=== PATIENT | male | born 1955 | race Caucasian/White ===

== ENCOUNTER 2016-06-08 10:38 | Emergency (ER) | payer OTHER ==
[2016-06-08 10:44] VITALS: RESP 16
--- NOTE | 2016-06-08 11:28 | EDPHY ---
H & P Stated Complaint: LIRIANO left sided since last night. Time Seen by Provider: 06/08/16 11:00 HPI/ROS: CHIEF COMPLAINT: new onset headache HISTORY OF PRESENT ILLNESS: 61-year-old male otherwise healthy with no prior history of chronic headaches awoke at 4:00 a.m. today with intermittent left left parietal headache which lasts between 5-10 seconds described as a "ice cream headache". Occurs approximately every2-3 minutes. not described as thunderclap. Does not radiate, is not associated with visual issues such as visual acuity changes, visual field cuts, tearing of the eye. Denies: neurologic deficits, gait instability, slurred speech, fever, chills He has no history of head or neck trauma. No history of neck manipulation. No history of vasculopathy. No history of malignancy. PRIMARY CARE PROVIDER: Dr. Rupesh Andrews REVIEW OF SYSTEMS: A ten point review of systems was performed and is negative with the exception of the items mentioned in the HPI PAST MEDICAL & SURGICAL HISTORY: No prior history of chronic headaches, no history of vasculopathy or malignancy SOCIAL HISTORY: nonsmoker PHYSICAL EXAM (Prior to examination, patient consented to physical exam, hands were washed and my usual and customary physical exam procedures followed) 1) GENERAL: Well-developed, well-nourished, alert and oriented. Appears to be in no acute distress. 2) HEAD: Normocephalic, atraumatic. No tenderness to palpation of the scalp including temporal region. 3) HEENT: Pupils equal, round, reactive to light bilaterally. Sclera anicteric. Nasopharynx, oropharynx, clear, no lesions. Ears bilaterally with normal tympanic membranes. 4) NECK: Full range of motion, no meningeal signs. 5) LUNGS: Clear auscultation bilaterally, no wheezes, no rhonchi, no retractions. 6) HEART: Regular rate and rhythm, no murmur, no heave, no gallop. 7) ABDOMEN: No guarding, no rebound, no focal tenderness, negative McBurney's, negative Gordon's, negative Rovsing's, negative peritoneal sign, 8) MUSCULOSKELETAL: Moving all extremities, no focal areas of tenderness, no obvious trauma. No peripheral edema or discoloration. 9) BACK: No CVA tenderness, no midline vertebral tenderness, no fluctuance, no step-off, no obvious trauma, no visual or palpable abnormality. 10) SKIN: No rash, no petechiae. 11) Psychiatric: Patient is oriented X 3, there is no agitation. 12) NEURO: Awake, alert, and oriented to person, place and time. Answers questions appropriately. There were no obvious focal neurologic abnormalities. No cerebellar dysfunction. Cranial nerves 2 through to 12 intact. Normal steady gait. Upper and lower extremities bilaterally with strength 5 / 5, reflexes 2+. DIFFERENTIAL DIAGNOSIS: In no particular order, including but not limited to subarachnoid hemorrhage, migraine headache, tension headache and infectious causes such as meningitis, pharyngitis and sinusitis. The patient understands that this diagnosis is provisional and can never be 100% accurate. Usual and customary warnings were given concerning the clinical impression and all the patient's questions were answered. The patient was instructed to return to the emergency department should her symptoms worsen or return, or develop any new symptoms, otherwise to followup as directed in discharge instructions. This is a partial list of diagnoses considered. These considerations are based on history, physical exam, past history and reassessment. - Personal History Current Tetanus/Diphtheria Vaccine: Yes Current Tetanus Diphtheria and Acellular Pertussis (TDAP): Yes - Medical/Surgical History Hx Asthma: No Hx Chronic Respiratory Disease: No Hx Diabetes: No Hx Cardiac Disease: No Hx Renal Disease: No Hx Cirrhosis: No Hx Alcoholism: No Hx HIV/AIDS: No Hx Splenectomy or Spleen Trauma: No Other PMH: mild IBS - Social History Smoking Status: Never smoked Constitutional: Initial Vital Signs Temperature (C) 36.6 C 06/08/16 10:41 Heart Rate 64 06/08/16 10:41 Respiratory Rate 16 06/08/16 10:41 Blood Pressure 129/76 H 06/08/16 10:41 O2 Sat (%) 97 06/08/16 10:41 O2 Delivery Mode Room Air Allergies/Adverse Reactions: No Known Allergies Allergy (Unverified 06/08/16 10:40) Home Medications: Medication Instructions Recorded NK [No Known Home Meds] 06/08/16 Medical Decision Making - Diagnostics Imaging Results: Imaging Impressions Head CT 06/08/16 11:28 Impression: Normal head CT. Findings were discussed by telephone with Wong Garrett PA-C at 1210 hrs. Head CTA 06/08/16 11:28 Impression: 1. Normal CT angiogram of the [place] [facility] [place], as detailed above. 2. No evidence of venous sinus thrombosis. Note: All calculations were performed using NASCET criteria Findings were discussed by telephone with Wong Garrett PA-C at 1210 hrs. Imaging: Discussed imaging studies w/ bingo caller Radiologist ED Course/Re-evaluation: 11:28 a.m.: Patient has a nonfocal exam. Discussed case Dr. Lubna Hidalgo. Will obtain imaging studies. 12:16 a.m.: Re-evaluation. Discussed his negative imaging results of his brain including vascular study. Discussed this with Dr. Lubna Hidalgo in the ER. He remains with a nonfocal neurologic examination. I think the patient can be discharged with close follow up with primary care provider on Saturday (today is Saturday). In the meantime should he develop new or worsening symptoms needs to return to the ER. Strict return precautions provided and he feels comfortable being discharged. Recommend ibuprofen for the next 2 days. Doubt subarachnoid hemorrhage, doubt thrombus, doubt mass, doubt trigeminal neuralgia , doubt cluster headache. - Data Points Laboratory Results: 06/08/16 11:26 POC Hgb 15.6 gm/dL gm/dL (14.5-17.3) POC Hct 46 % % (42.8-50.6) POC Sodium 141 mEq/L mEq/L (134-144) POC Potassium 4.1 mEq/L mEq/L (3.3-5.0) POC Chloride 100 mEq/L mEq/L (96-108) POC BUN 22 mg/dL mg/dL (7-23) POC Creatinine 1.0 mg/dL mg/dL (0.8-1.5) POC Glucose 86 mg/dL mg/dL (70-100) Point of Care Test Results: 06/08/16 11:26 POC Sodium 141 POC Potassium 4.1 POC Chloride 100 POC BUN 22 POC Creatinine 1.0 POC Glucose 86 Departure - Departure Disposition: Home, Routine, Self-Care Clinical Impression: Headache Qualifiers: Headache type: other headache syndrome Qualified Code(s): G44.89 - Other headache syndrome Condition: Good Instructions: Acute Headache (ED) Additional Instructions: THANK YOU FOR YOUR VISIT TO OUR EMERGENCY DEPARTMENT (ED). YOU WERE SEEN TODAY BECAUSE OF A HEADACHE. YOU MAY HAVE HAD LAB TESTS, A CT SCAN, MRI OR EVEN A LUMBAR PUNCTURE (COMMONLY REFERRED TO A SPINAL TAP). WE CANNOT ALWAYS FIND THE EXACT CAUSE OF YOUR SYMPTOMS DURING YOUR VISIT TO THE ED. RETURN TO THE ED IMMEDIATELY IF YOUR HEADACHE WORSENS, IF YOU DEVELOP A FEVER, NECK PAIN OR NECK STIFFNESS, OR IF YOU BECOME CONFUSED OR ABNORMALLY DROWSY. Referrals: Rupesh Andrews MD [Primary Care Provider] - 06/11/16
[2016-06-08] MEDS ORDERED: IOPAMIDOL (ISOVUE 370) 100 ML BTL IV ONE (11:36)
[2016-06-08 12:37] VITALS: BP 109/63; PULSE 58; TEMP 98.1; O2SAT 96
== END 2016-06-08 12:37 | disposition home or self-care (01) ==
DX: G44.89 Other headache syndrome (principal)
CPT/HCPCS: 82947-QW; Q9967

== ENCOUNTER 2017-06-08 06:46 | Emergency (ER) | payer OTHER ==
--- NOTE | 2017-06-08 07:03 | CPEKG ---
Heart Rate: 68 RR Interval: 882 P-R Interval: 204 QRSD Interval: 96 QT Interval: 388 QTC Interval: 413 P [place]: 73 QRS [place]: 88 T Wave [place]: 29 EKG Severity - BORDERLINE ECG - EKG Impression: SINUS RHYTHM EKG Impression: VENTRICULAR PREMATURE COMPLEX EKG Impression: BORDERLINE RIGHT AXIS DEVIATION Electronically Signed By: Chloe Stevens 08-Jun-2017 10:44:54
[2017-06-08] MEDS: LET GEL TOPICAL 1 EA SYR TP ONE (07:13)
--- NOTE | 2017-06-08 07:19 | EDPHY ---
H & P Stated Complaint: SYNCOPE/LAC BRIDGE OF NOSE @ 0500 AFTER BATH Time Seen by Provider: 06/08/17 07:08 HPI/ROS: CHIEF COMPLAINT: Syncope, facial laceration HISTORY OF PRESENT ILLNESS: 62-year-old male presents after a syncopal episode with a facial laceration. Onset of nasal congestion and cough 3 days ago. The URI symptoms have been mild and without fever or shortness of breath. He was taking a hot bath this morning, when he developed nausea and dizziness. He stood up and sat on the toilet and then had a syncopal episode. He fell forward and struck his face. Mild epistaxis, quickly resolved. Had not eaten prior to syncopal episode. Denies headache, neck pain, nausea or abdominal pain now. REVIEW OF SYSTEMS: complete 10 point ROS negative except at noted in the HPI - Personal History Current Tetanus Diphtheria and Acellular Pertussis (TDAP): No - Medical/Surgical History Hx Asthma: No Hx Chronic Respiratory Disease: No Hx Diabetes: No Hx Cardiac Disease: No Hx Renal Disease: No Hx Cirrhosis: No Hx Alcoholism: No Hx HIV/AIDS: No Hx Splenectomy or Spleen Trauma: No Other PMH: mild IBS - Social History Smoking Status: Never smoked - Physical Exam Exam: General Appearance: Alert, pleasant Eyes: Pupils equal and round, no conjunctival pallor or injection ENT, Mouth: 1cm laceration on the bridge of the nose, no dental injury, no facial bony tenderness, mucous membranes moist Neck: Normal inspection, no midline tenderness, range of motion without pain Respiratory: Lungs are clear to auscultation Cardiovascular: Regular rate and rhythm Gastrointestinal: Abdomen is soft and nontender Neurological: A&O, nonfocal, normal gait Skin: Warm and dry Extremities: Nontender, no swelling Psychiatric: Mood and affect normal Constitutional: Initial Vital Signs Temperature (C) 36.7 C 06/08/17 06:52 Heart Rate 70 06/08/17 06:52 Respiratory Rate 18 06/08/17 06:52 Blood Pressure 110/59 L 06/08/17 06:52 O2 Sat (%) 93 06/08/17 06:52 O2 Delivery Mode Room Air Allergies/Adverse Reactions: No Known Allergies Allergy (Verified 06/08/17 06:51) Home Medications: Medication Instructions Recorded NK [No Known Home Meds] 06/08/16 Medical Decision Making - Diagnostics EKG Interpretation: EKG interpreted by me reveals normal sinus rhythm, rate 68, PVC, no ST or T segment changes. Interpretation borderline EKG. Procedures: Procedure: Laceration repair. The 1 cm laceration on the nasal bridge was anesthetized using lidocaine. The wound was irrigated, draped and explored to its base with a gloved finger. There were no deep structures involved. No foreign body palpable. The wound was repaired with 6-0 nylon. The wound repair was simple. ED Course/Re-evaluation: This pt presents after a syncopal episode, most likely a vasovagal episode related to a hot bath, lack of oral intake and URI. He now feels back to normal. He is nontoxic-appearing and chest is clear to auscultation. No evidence of pneumonia or serious bacterial infection. Stat EKG reveals no evidence of ischemia or dysrhythmia. Observation in the emergency department, patient was asymptomatic throughout. Laceration was sutured by me. Warning signs discussed. Differential Diagnosis: Differential diagnosis for syncope includes though is not limited to cardiac dysrhythmia, CVA, TIA, GI bleed, sepsis, hypoglycemia. - Data Points Laboratory Results: Laboratory Results 06/08/17 07:23 06/08/17 07:23 06/08/17 06/08/17 07:23 07:23 WBC 5.74 10^3/uL 10^3/uL (3.80-9.50) RBC 4.73 10^6/uL 10^6/uL (4.40-6.38) Hgb 14.6 g/dL g/dL (13.7-17.5) Hct 43.8 % % (40.0-51.0) MCV 92.6 fL fL (81.5-99.8) MCH 30.9 pg pg (27.9-34.1) MCHC 33.3 g/dL g/dL (32.4-36.7) RDW 13.0 % % (11.5-15.2) Plt Count 78 10^3/uL L 10^3/uL (150-400) MPV 11.6 fL fL (8.7-11.7) Neut % (Auto) 81.7 % H % (39.3-74.2) Lymph % (Auto) 8.2 % L % (15.0-45.0) Ball[place] % (Auto) 8.2 % % (4.5-13.0) Eos % (Auto) 0.7 % % (0.6-7.6) Baso % (Auto) 0.7 % % (0.3-1.7) Nucleat RBC Rel Count 0.0 % % (0.0-0.2) Absolute Neuts (auto) 4.69 10^3/uL 10^3/uL (1.70-6.50) Absolute Lymphs (auto) 0.47 10^3/uL L 10^3/uL (1.00-3.00) Absolute Monos (auto) 0.47 10^3/uL 10^3/uL (0.30-0.80) Absolute Eos (auto) 0.04 10^3/uL 10^3/uL (0.03-0.40) Absolute Basos (auto) 0.04 10^3/uL 10^3/uL (0.02-0.10) Absolute Nucleated RBC 0.00 10^3/uL 10^3/uL (0-0.01) Immature Gran % 0.5 % % (0.0-1.1) Immature Gran # 0.03 10^3/uL 10^3/uL (0.00-0.10) Sodium 142 mEq/L mEq/L (135-145) Potassium 4.4 mEq/L mEq/L (3.5-5.2) Chloride 104 mEq/L mEq/L (97-110) Carbon Dioxide 25 mEq/l mEq/l (22-31) Anion Gap 13 mEq/L mEq/L (8-16) BUN 17 mg/dL mg/dL (7-23) Creatinine 1.0 mg/dL mg/dL (0.7-1.3) Estimated GFR > 60 Glucose 130 mg/dL H mg/dL (70-100) Calcium 8.9 mg/dL mg/dL (8.5-10.4) Medications Given: Discontinued Medications Diphtheria/Tetanus/Acell Pertussis (Boostrix) 0.5 ml IM .ONCE ONE Stop: 06/08/17 07:16 Last Admin: 06/08/17 07:38 Dose: 0.5 ml Tetracaine/Epinephrine/Lidocaine (Let Gel Topical) 1 ea TP EDNOW ONE Stop: 06/08/17 07:11 Last Admin: 06/08/17 07:13 Dose: 1 ea Departure - Departure Disposition: Home, Routine, Self-Care Clinical Impression: Syncope Qualifiers: Syncope type: vasovagal syncope Qualified Code(s): R55 - Syncope and collapse Facial laceration Qualifiers: Encounter type: initial encounter Qualified Code(s): S01.81XA - Laceration without foreign body of other part of head, initial encounter Condition: Good Instructions: Syncope (ED), Facial Laceration (ED) Additional Instructions: Return in 5 days for suture removal. Referrals: Rupesh Andrews MD [Primary Care Provider] - As per Instructions
[2017-06-08 07:31] LABS: PLATELET COUNT 78 10^3/uL (150-400)
[2017-06-08] MEDS ORDERED: SKIN ADHESIVE (DERMABOND) 1 EACH TP ONE (07:37)
[2017-06-08] MEDS: TDAP ADULT 0.5 ML INJ (BOOSTRIX) IM ONE (07:38)
[2017-06-13 07:38] VITALS: BP 138/68
== END 2017-06-08 08:15 | disposition home or self-care (01) ==
PROC: 09QKXZZ Repair Nasal Mucosa and Soft Tissue, External Approach (ICD-10-PCS; principal; 2017-06-08)
DX: S01.21XA Laceration without foreign body of nose, initial encounter (principal); R55 Syncope and collapse; Z23 Encounter for immunization; W18.12XA Fall from or off toilet with subsequent striking against object, initial encounter; Y92.89 Other specified places as the place of occurrence of the external cause; Y99.8 Other external cause status; Y93.89 Activity, other specified